=== PATIENT | male | born 1965 | race Two or more races ===

== ENCOUNTER 2024-04-12 16:18 | Emergency (ER) | payer MEDICAID, SELFPAY ==
[2024-04-12 16:19] VITALS: BMI 29.2
[2024-04-12 16:29] VITALS: BP 131/75; PULSE 67; RESP 18; TEMP 36.7; O2SAT 97
--- NOTE | 2024-04-12 16:45 | XR_ITS ---
Examination: CT abdomen with intravenous contrast CT pelvis with intravenous contrast 2-D coronal reconstructions 2-D sagittal reconstructions Date and time of exam:April 12, 2024 2022 hrs. Indications: Onset lower abdominal pain beginning 4 days ago. CTDI: vol (mGy) 13 DLP: (mGycm) 482 Technique: Multiple axial sections of the abdomen and pelvis have been obtained. 64 slice high-resolution scanner used. 3 mm axial sections have been obtained, post intravenous injection 60 cc [id number] 2-D sagittal, coronal reconstructions obtained. Low dose protocols were performed. One or more of the following dose reduction techniques were used; automated exposure control, adjustment of the mA and/or KV according to patient size, use of iterative reconstruction technique. Findings: 6 mm pulmonary nodule right lower lobe No focal liver or splenic lesions Contracted gallbladder No pancreatic or adrenal mass No renal or ureteral calculi, no hydronephrosis No bowel obstruction Normal appendix No diverticulitis Mild thickening of urinary bladder wall Transverse prostate dimension 3.1 cm Impression: 6 mm pulmonary nodule right lower lobe, recommend PA lateral chest follow-up Contracted gallbladder Negative for pancreatitis No renal or ureteral calculi, no hydronephrosis Normal appendix No bowel obstruction or diverticulitis Mild thickening of urinary bladder wall, consider cystitis
--- NOTE | 2024-04-12 16:46 | PD.EDABDPN ---
ED Abdominal Pain RME/HPI General Chief Complaint: Urogenital-Male Stated complaint: Abdominal pain x 1 week, Pain with urination Time seen by provider: 04/12/24 16:38 Arrival date/time: 04/12/24 16:18 RME / HPI RME / HPI narrative: 59-year-old male patient with no significant medical history, came in for evaluation regarding lower abdominal pain. This been ongoing for 1 week, getting worse, associated with dysuria. Denies any fever vomiting diarrhea constipation or other complaints. Patient was seen by PCP few days ago and was advised to have outpatient imaging however patient cannot wait because the pain is getting worst. No medication was prescribed during that time by PCP. Related Data Home Medications ?Medication ?Instructions ?Recorded ?Confirmed No Known Home Medications 06/28/22 06/28/22 Allergies Allergy/AdvReac Type Severity Reaction Status Date / Time No Known Allergies Allergy Verified 06/27/22 20:05 Review of Systems Review of Systems Narrative Review of Systems: Review of system reviewed and within normal limits except mentioned in HPI ED Exam Narrative Physical exam: VITAL SIGNS: Reviewed. GENERAL APPEARANCE: Alert and interactive, follows commands, no acute distress, HEAD AND FACE: Non-traumatic. ENT: PERRL, pink conjunctivitis, eyelid no trauma, Mucous membrane moist. NECK: Supple, nontender, no nuchal rigidity. CHEST: No tenderness, no crepitus, no paradoxical movement, no retractions. LUNGS: Clear, well ventilated, symmetric, no rales, no wheezing, no ronchi, no stridor, good breath sounds bilaterally. HEART: Regular rate, regular rhythm, no murmur, no gallops. ABDOMEN: Soft, positive bowel sounds, nondistended, no guarding, lower abdominal tenderness no rebound, no masses, RECTAL: Deferred. GENITAL: Deferred. NEUROLOGICAL: Gross motor function intact sensory function intact, Appropriate for age. MUSCULOSKELETAL: low back nontender, full range of motion. EXTREMITIES: Nontender, full range of motion. SKIN: Color pink, dry, no rash, no lacerations, no abrasions, no contusions. LYMPHATICS: Deferred. Course Quality Measures none Orders Category Date Time Status CT Screening NOW Care 04/12/24 16:[address] abdomen pelvis w con Stat Exams 04/12/24 16:45 Completed CBC Stat Lab 04/12/24 16:52 Completed Comprehensive Metabolic Panel Stat Lab 04/12/24 16:52 Completed Lipase Stat Lab 04/12/24 16:52 Completed Prothrombin Time with INR Stat Lab 04/12/24 16:52 Completed UA, C/S IF [Urinalysis, C/S if Indicated] Stat Lab 04/12/24 17:10 Completed Vital Signs Vital signs: Vital Signs Temperature 98.1 F 04/12/24 16:29 Pulse Rate 67 04/12/24 16:29 Respiratory Rate 18 04/12/24 16:29 Blood Pressure 131/75 H 04/12/24 16:29 Pulse Oximetry (%) 97 04/12/24 16:29 Oxygen Delivery Method Room Air 04/12/24 16:[address] [facility] Narrative [facility] Narrative:: 59-year-old male patient with no significant medical history, came in for evaluation regarding lower abdominal pain. This been ongoing for 1 week, getting worse, associated with dysuria. Denies any fever vomiting diarrhea constipation or other complaints. Patient was seen by PCP few days ago and was advised to have outpatient imaging however patient cannot wait because the pain is getting worst. No medication was prescribed during that time by PCP. Patient's workup today all came back normal. CT scan of the abdomen also came back with no acute pathology except for slightly enlarged prostate. And slightly thickened urinary bladder. Patient was advised to follow-up with PCP and for referral to urologist for further evaluation. Patient stable for discharge home. Patient data External records reviewed:: None Clinical information provided by:: patient Social determinants that could affect healthcare access:: none Patient has the following chronic illnesses:: None How is presenting disease/condition affected by chronic disease/condition?: no chronic disease Evaluation data The following diagnostics were reviewed and interpreted by me:: lab results and radiology exam(s) Lab and/or radiology exams considered but not ordered:: None Interpretation Summary: See results in MDM Medications / Prescriptions Medications or Prescriptions considered but not ordered:: None Medication administrations:: None Consultations Consultation(s) initiated? (list below): No Diagnosis Differential diagnosis abdominal pain: abdominal pain, constipation and diverticulitis Most likely diagnosis given after review of the tests above:: Abdominal pain, BPH Admission Indicated Admission indicated?: not indicated Admission Request Was there a request for admission?: No Disposition Plan Disposition Plan: Discharge Discharge Attestation Discharge Attestation: The patient and all family members were given an opportunity to ask questions and understood the discharge instructions. Discharge instructions specifically effects, indications for sooner follow up or return to the emergency department, and the expected course of current diagnosis. Patient condition: Stable Discharge Plan Plan Patient Disposition: HOME (Self Care) Disposition Comment: Stable Prescriptions/Referrals Prescriptions/Med Rec: No Action No Known Home Medications Referrals: Trisha Mcmillan FNP [Primary Care Provider] - In 1 week Problem List Clinical Impression: Abdominal pain, Enlarged prostate Patient/Caregiver Discharge Instructions Discharge Activity: activity as tolerated Education Materials: Prostate Anatomy Additional Instructions: Thank you for the opportunity for serving you today. You are stable for discharged . You are advised to: Follow-up with your PCP in 1 to 2 days and asked for referral to urologist. Return to ED for worsening of symptoms Increase oral fluids Print Language: Swedish Stand Alone Forms: Rachael Award Info., Patient Portal Info Letter MIKE/KELLY Supervising Physician NORMA Supervising Physician: MD Naomi
[2024-04-12 17:16] LABS: Basophils % (Auto) 0 % (0-2.5); Eosinophils % (Auto) 1 % (0-10); Hematocrit 42.9 % (41.0-53.0); Hemoglobin 15.2 g/dL (13.5-16.0); Immature Granulocytes % (Auto) 0 % (0-0); Immature Granulocytes Auto 0.01 Thou/mm3 (0.00-0.00); Lymphocytes # (Auto) 2.2 Thou/mm3 (1.0-4.8); Lymphocytes % (Auto) 38 % (10-50); Mean Corpuscular HGB Conc 35.4 g/dl (31.0-37.0); Mean Corpuscular Hemoglobin 32.3 pg (25.0-35.0); Mean Corpuscular Volume 91 fL (80-100); Monocytes # (Auto) 0.5 Thou/mm3 (0.0-0.8); Monocytes % (Auto) 8 % (0-12); Neutrophils # (Auto) 3.1 Thou/mm3 (1.8-7.7); Neutrophils % (Auto) 53 % (37-80); Nucleated Red Blood Cell % 0 /100 WBC (0); Platelet Count 208 Thou/mm3 (140-440); RDW Standard Deviation 41.6 fL (35.1-43.9); White Blood Count 5.8 Thou/mm3 (3.8-10.6)
[2024-04-12 17:32] LABS: Collection Type, Urine Clean Catch; RBC,Urine 0 /hpf (0-3)
[2024-04-12 17:36] LABS: Prothrombin Time 11.4 Seconds (9.0-12.2)
[2024-04-12 17:38] LABS: Bilirubin,Urine Negative (Negative); Blood,Urine Negative (Negative); Clarity,Urine Clear (Clear/Hazy); Color,Urine Colorless (Lt Yel-Yel); Culture Indicated,Urine Not Indicated; Glucose, Urine Negative (Negative); Ketones,Urine Negative (Negative); Leukocyte Esterase,Urine Positive (Negative); Nitrite,Urine Negative (Negative); Protein,Urine Negative (Neg - Trace); Squamous Epithelial Cell,Urine 1 /hpf (0-5); Urobilinogen,Urine Negative mg/dL (0.0-1.0); WBC,Urine 3 /hpf (0-5)
[2024-04-12 17:42] LABS: Alanine Aminotransferase 53 U/L (10-49); Albumin, Serum 4.4 gm/dL (3.4-4.8); Albumin/Globulin Ratio 1.6 (1.2-2.2); Alkaline Phosphatase 119 U/L (46-116); Anion Gap 7 (7-16); Aspartate Amino Transferase 49 U/L (0-34); BUN/Creatinine Ratio 21 Ratio (12-20); Bilirubin,Total 0.7 mg/dL (0.3-1.2); Blood Urea Nitrogen 17 mg/dL (9-23); Calcium 9.4 mg/dL (8.3-10.6); Calcium (Corrected) 9.4 mg/dL (8.5-10.1); Carbon Dioxide 26.1 mMol/L (20.0-31.0); Chloride 108 mMol/L (98-107); Creatinine (Component) 0.8 mg/dL (0.6-1.3); Estimated Creatinine Clearance 94.4 mL/min (>60); Globulin 2.7 gm/dL (2.3-3.5); Glucose 88 mg/dL (74-106); Lipase 58 U/L (12-53); Osmolality,Calculated 281 (275-295); Potassium 3.7 mMol/L (3.4-5.1); Sodium 141 mMol/L (136-145); Total Protein 7.1 gm/dL (5.7-8.2); eGFR > 60 See Note
[2024-04-12 18:45] VITALS: BP 136/81; PULSE 57; RESP 16; TEMP 36.3; O2SAT 97
--- NOTE | 2024-04-12 18:50 | PC.NURSE ---
PT IN TODAY WITH LLQ PAIN THAT STARTED 1 WEEK AGO. PT DID SEE PMD AND THEN CAME IN TO GET EVALUATED. PT IS A/OX4 AND AMB. BS X4 QUADS ACTIVE. DAUGHTER IS AT BEDSIDE, AND CALL LIGHT WITH IN REACH.
[2024-04-12 19:24] VITALS: BP 148/87; PULSE 52; RESP 18; O2SAT 96
[2024-04-12 20:15] VITALS: BP 145/83; PULSE 54; RESP 17; TEMP 36.8; O2SAT 97
[2024-04-12 21:44] VITALS: BP 150/83; PULSE 89; RESP 19; TEMP 36.7
== END 2024-04-12 21:46 | disposition home or self-care (01) ==
PROVIDERS: Nurse Practitioner Family; Emergency Provider Emergency Medicine; PCP Nurse Practitioner Family
DX: N40.0 Benign prostatic hyperplasia without lower urinary tract symptoms (principal)
CPT/HCPCS: 36415; 74177; 80053; 81001; 83690; 85025; 85610; 99285; A4649; Q9967

== ENCOUNTER → 2024-05-21 | Outpatient (CLI) | payer MEDICAID, SELFPAY ==
--- NOTE | 2024-05-21 08:45 | XR_ITS ---
Examination: Abdomen sonogram, complete Date and time of exam: May 21, 2024 at 0851 hours INDICATIONS: Left lower abdominal pain beginning 10 days ago. Technique: Multiple real-time grayscale transabdominal sonographic images of the abdomen have been obtained. Findings: Normal gallbladder Normal common bile duct 0.2 cm Pancreatic head 1.9 cm Aorta not enlarged Liver 15.1 cm smooth contour no focal liver lesions Normal hepatopedal portal venous flow Patent IVC Right kidney 11.1 cm renal cortex 1.8 cm Left kidney 11.5 cm renal cortex 1.6 cm No hydronephrosis Spleen 10.2 cm IMPRESSION: Negative study
--- NOTE | 2024-05-21 08:45 | XR_ITS ---
Examination: Pelvic ultrasound, transabdominal, complete Technique: Transabdominal ultrasound of the pelvis performed using grayscale imaging Date and time of exam: May 21, 2024 0839 hours INDICATIONS: Left lower abdominal pelvic pain beginning 10 days ago FINDINGS: No bladder mass or bladder calculi Contracted urinary bladder bladder prevoid volume 41 cc Bladder wall 0.6 cm Prostate volume 18 cc no prostate nodules IMPRESSION: Mild urinary bladder wall thickening, consider cystitis
== END | disposition home or self-care (01) ==
PROVIDERS: Referring Provider Nurse Practitioner Family; Visit Provider Nurse Practitioner Family
DX: N32.89 Other specified disorders of bladder (principal); R10.30 Lower abdominal pain, unspecified
CPT/HCPCS: 76700; 76856